=== PATIENT | male | born 1950 | race African-American/Black ===

== ENCOUNTER 2021-03-01 20:15 | Emergency (ER) | payer OTHER ==
[~2021-03-01] VITALS: Ht 162.6 cm; Wt 75.0 kg
[~2021-03-01 20:15] MED LIST: AMLODIPINE5 MG PO; ASPIRIN325 MG PO; CLOTRIMAZOLE1 % EX; COLACE100 MG PO; DIPHENHYDRAM25 MG PO; DULCOLAX5 MG PO; FERROUS SULF325 M1 PO; HALOPERIDOL1 MG PO; HALOPERIDOL5 MG PO; HYDROCHLOROT25 MG PO; ISOSORB MONO30 MG PO; KALETRA1 TAB PO; LEVOTHYROXIN50 MCG PO; LISINOPRIL10 MG PO; MAG-AL PLUS PO; MINERI1 EX; NITROSTAT0.4 MG SL; NORVIR100 M1 PO; PRAVASTATIN20 MG PO; PREZISTA600 MG PO; SENNA/DSS1 TAB PO; TRIPLE ANTI1 EX; TRUVADA PO; VERAPAMIL240 M1 PO
[2021-03-01 20:51] LABS: GFR > 60 ML/MIN (>=60 (CALC)); GFR FOR AFR.AMER. > 60 ML/MIN (>=60 (CALC))
[2021-03-01 20:52] LABS: IMMATURE GRANULOCYTES 0.7 % (0.0-5.0); MEAN CELL VOLUME 92.7 fL CALC (80.0-100.0); MEAN CORPUSCULAR HGB CONC 31.3 g/dL CAL (32.0-36.0); NEUT# 4.68 thou/uL (1.82-7.42); RED BLOOD COUNT 4.24 mill/uL (4.70-6.10); RED CELL DISTRI WIDTH 13.3 % (11.5-15.5)
[2021-03-01 20:55] LABS: HEMATOCRIT 39.3 % (39.0-50.0); HEMOGLOBIN 12.3 g/dl (14.0-18.0)
[2021-03-01 21:13] LABS: ALKALINE PHOSPHATASE 95 u/l (38-126); AMYLASE 92 u/l (30-110); BUN 15 mg/dL (8-23); BUN/CREATININE RATIO 24 (12-20 (CALC)); CARBON DIOXIDE 24 mmol/l (22-30); CHLORIDE 100 mmol/l (95-108); CREATININE 0.6 mg/dL (0.7-1.3); ETHYL ALCOHOL 0 mg/dl (0-30); GFR > 60 ML/MIN (>=60 (CALC)); GFR FOR AFR.AMER. > 60 ML/MIN (>=60 (CALC)); LIPASE 27 u/l (23-300); SGOT/AST 30 u/l (19-48); SODIUM 134 mmol/l (137-146)
[2021-03-01 21:14] LABS: ALBUMIN 4.7 g/dL (3.2-5.0); ANION GAP 14 (6-22 (CALC)); POTASSIUM 4.2 mmol/l (3.5-5.1); TOTAL PROTEIN 8.8 g/dL (6.3-8.2)
[2021-03-01 21:23] LABS: INTERNATIONAL NORMALIZED RATIO 1.1 RATIO (0.7-1.3); PROTHROMBIN TIME 11.2 SECONDS (9.0-12.5)
[2021-03-01] MEDS ORDERED: TERAZOSIN1 MG PO (22:28)
[2021-03-01] MEDS ORDERED: EPIVIR300 MG PO (22:41)
[2021-03-01] MEDS ORDERED: REYATAZ300 MG PO (22:42)
[2021-03-01] MEDS ORDERED: VIREAD300 MG PO (22:43)
[2021-03-01] MEDS ORDERED: DOCUSATE SOD100 MG PO (22:45)
[2021-03-01 23:50] VITALS: BP 146/73
== END 2021-03-01 22:50 | disposition short-term general hospital (02) | DRG 90 ==
LOC: ED 20:15
DX: S06.0X9A Concussion with loss of consciousness of unspecified duration, initial encounter (principal); S02.40DA Maxillary fracture, left side, initial encounter for closed fracture; S01.112A Laceration without foreign body of left eyelid and periocular area, initial encounter; R55 Syncope and collapse; I10 Essential (primary) hypertension; E78.5 Hyperlipidemia, unspecified; W18.30XA Fall on same level, unspecified, initial encounter; Y92.149 Unspecified place in prison as the place of occurrence of the external cause; Z21 Asymptomatic human immunodeficiency virus [HIV] infection status; Z20.822 Contact with and (suspected) exposure to COVID-19

== ENCOUNTER 2021-03-30 17:33 | Emergency (ER) | payer OTHER ==
[~2021-03-30 17:33] MED LIST changes: +DOCUSATE SOD100 MG PO; +EPIVIR300 MG PO; +REYATAZ300 MG PO; +TERAZOSIN1 MG PO; +VIREAD300 MG PO
[2021-03-30] MEDS ORDERED: PRAVASTATIN20 MG PO (17:51)
[2021-03-30] MEDS ORDERED: ASPIRIN81 MG PO (17:52)
[2021-03-30] MEDS ORDERED: HYDROCHLOROT12.5 MG PO (17:53)
[2021-03-30] MEDS ORDERED: TERBINAFINE HC250 MG PO (17:54)
[2021-03-30] MEDS ORDERED: PEPCID20 MG PO (17:55)
[2021-03-30 18:27] LABS: HEMOGLOBIN 11.8 g/dl (14.0-18.0); IMMATURE GRANULOCYTES 1.2 % (0.0-5.0); MEAN CORPUSCULAR HGB 29.5 pG CALC (26.0-32.0); MEAN CORPUSCULAR HGB CONC 31.1 g/dL CAL (32.0-36.0); NEUT# 11.77 thou/uL (1.82-7.42); RED CELL DISTRI WIDTH 13.5 % (11.5-15.5)
[2021-03-30 18:36] LABS: ALBUMIN 4.5 g/dL (3.2-5.0); BILIRUBIN, TOTAL 2.3 mg/dL (0.0-1.4); POTASSIUM 3.9 mmol/l (3.5-5.1); TOTAL PROTEIN 8.6 g/dL (6.3-8.2)
[2021-03-31 01:29] LABS: URINE BILIRUBIN - DIPSTICK NEGATIVE (NEGATIVE); URINE BLOOD DIPSTICK SMALL (NEGATIVE); URINE COLOR YELLOW; URINE GLUCOSE - DIPSTICK NEGATIVE (NEGATIVE); URINE KETONE NEGATIVE (NEGATIVE); URINE LEUK ESTERASE TRACE (NEGATIVE); URINE NITRITE - DIPSTICK NEGATIVE (Negative); URINE PROTEIN - DIPSTICK NEGATIVE (NEG-TRACE); URINE UROBILINOGEN - DIPSTICK 0.2 E.U./dL (0.2)
[2021-03-31 01:48] LABS: URINE BACTERIA MANY hpf; URINE SQUAMOUS EPITHELIAL CELL FEW EPI/hpf (0-FEW)
[2021-03-31] MEDS ORDERED: BACTRIM DS1 TAB PO (01:54)
[2021-03-31 02:09] VITALS: BP 121/62
== END 2021-03-31 02:37 | disposition designated cancer center or children's hospital (05) | DRG 392 ==
LOC: ED 17:33
PROVIDERS: Family Medicine
DX: R10.84 Generalized abdominal pain (principal); I10 Essential (primary) hypertension; E78.5 Hyperlipidemia, unspecified; Z21 Asymptomatic human immunodeficiency virus [HIV] infection status; Z89.412 Acquired absence of left great toe; Z20.822 Contact with and (suspected) exposure to COVID-19